=== PATIENT | male | born 1975 | race Caucasian/White ===

== ENCOUNTER 2022-01-18 16:43 | Emergency (ER) ==
[2022-01-18] MEDS ORDERED: Morphine 4 MG/ML VIAL ONE (17:41)
[2022-01-18] MEDS ORDERED: Ondansetron PF 4 MG/2 ML Vial ONE (17:41)
[2022-01-18] MEDS ORDERED: Ketorolac Tromethamine 30 MG/ML VIAL ONE (17:41)
[2022-01-18] MEDS ORDERED: Ondansetron ODT 4 MG TAB ONE (17:42)
[2022-01-18] MEDS ORDERED: HYDROcodone/Acetaminophen 5/325 mg Tablet ONE (17:55)
== END 2022-01-18 18:02 | disposition home or self-care (01) ==
LOC: ERS 16:43
DX: K64.5 Perianal venous thrombosis (principal); J44.9 Chronic obstructive pulmonary disease, unspecified; I10 Essential (primary) hypertension; E78.5 Hyperlipidemia, unspecified; G47.30 Sleep apnea, unspecified; M19.90 Unspecified osteoarthritis, unspecified site; F17.210 Nicotine dependence, cigarettes, uncomplicated; Z79.899 Other long term (current) drug therapy
CPT/HCPCS: 96372; 99282; J1885; J2270; J2405; Q0162

== ENCOUNTER 2022-01-18 23:17 | Emergency (ER) | payer BC ==
[~2022-01-18 23:17] MED LIST: Iopamidol-370 76% 500 ML 1 ML ONE
[2022-01-19] MEDS ORDERED: Fentanyl 100 MCG/2 ML VIAL ONE (00:04)
[2022-01-19 00:10] LABS: Mean Corpuscular HGB CONC 34.4 g/dL (32.0-36.0); Mean Corpuscular Volume 95.9 fL (78.0-98.0); Mean Platelet Volume 7.3 fL (7.4-10.4); Platelet Count 290 thou/uL (130-400); RBC Distribution Width 12.4 % (11.5-14.5); Red Blood Cell (RBC) Count 4.25 mill/uL (4.70-6.10); White Blood Cell (WBC) Count 23.2 thou/uL (4.8-10.8)
[2022-01-19 00:31] LABS: ALT (SGPT) 51 U/L (8-55); AST (SGOT) 18 U/L (5-34); Albumin 3.8 g/dL (3.5-5.0); Alkaline Phosphatase 105 U/L (40-110); Anion Gap 16 mmol/L (10-20); BUN (Urea Nitrogen) 9 mg/dL (8.9-20.6); Bilirubin, Total 0.5 mg/dL (0.2-1.2); Calc. Creatinine Clearance 0 mL/min (70-130); Calcium 9.3 mg/dL (7.8-10.44); Carbon Dioxide 25 mmol/L (22-29); Chloride 97 mmol/L (98-107); Globulin 3.6 g/dL (2.4-3.5); Glucose 128 mg/dL (70-105); Potassium 3.6 mmol/L (3.5-5.1); Protein, Total 7.4 g/dL (6.0-8.3); Sodium 134 mmol/L (136-145)
[2022-01-19 00:39] LABS: Band 5 % (5-11); Lymphocytes 9 % (21-51); MDiff Complete? YES; Monocytes 10 % (0-10); Neutrophil 76 % (42-75); Platelet Morphology Comment Appears Adequate; RBC Morphology Normal
[2022-01-19] MEDS ORDERED: Lidocaine 4% Cream 5 GM TUBE w/ Tegaderm ONE ×2 (01:54→02:08)
[2022-01-19] MEDS ORDERED: Lorazepam 2 MG/ML VIAL ONE (02:38)
[2022-01-19] MEDS ORDERED: Bupivacaine 0.25% 10 ML VIAL ONE (02:38)
[2022-01-19] MEDS ORDERED: Sulfameth/Trimethoprim DS 800-160mg TAB ONE (03:38)
[2022-01-19] MEDS ORDERED: Cephalexin 250 MG CAP ONE ×2 (03:38→03:39)
== END 2022-01-19 03:50 | disposition home or self-care (01) ==
LOC: ERS 23:17
DX: K61.0 Anal abscess (principal); J44.9 Chronic obstructive pulmonary disease, unspecified; I10 Essential (primary) hypertension; E78.5 Hyperlipidemia, unspecified; F17.210 Nicotine dependence, cigarettes, uncomplicated; Z79.899 Other long term (current) drug therapy
CPT/HCPCS: 72193; 80053; 85025; 96374; 96375; J2060; J3010; Q9967; S0020